=== PATIENT | female | born 1970 | race Caucasian/White ===

== ENCOUNTER 2023-01-01 20:27 | Emergency (ER) | payer OTHER ==
[2023-01-01 20:36] VITALS: BP 152/74; PULSE 77; RESP 18; TEMP 98.9; BMI 24.7
[2023-01-01] MEDS ORDERED: AMOXICILLIN 500 MG CAPSULE (FP) PO ONE (21:29)
[2023-01-01] MEDS ORDERED: IBUPROFEN 600 MG TABLET (FP) PO ONE ×2 (21:29→21:36)
[2023-01-01] MEDS ORDERED: AMOX TR/POT CLAV 500MG/125MG TABLETS (FP) ONE (21:36)
== END 2023-01-01 21:41 | disposition home or self-care (01) ==
LOC: JERFT 20:27 → JER 20:27 → JERFT 21:41
DX: H92.01 Otalgia, right ear (principal); R05.9 Cough, unspecified; R07.0 Pain in throat; R09.81 Nasal congestion; H66.001 Acute suppurative otitis media without spontaneous rupture of ear drum, right ear; Z20.822 Contact with and (suspected) exposure to COVID-19
CPT/HCPCS: 0241U-QW; 87651; 99283-25